=== PATIENT | male | born 1960 | race Caucasian/White ===

== ENCOUNTER 2017-05-09 12:55 | Day surgery (SDC) | payer SELFPAY ==
[~2017-05-09] VITALS: Ht 182.9 cm; Wt 98.1 kg
[~2017-05-09 12:55] MED LIST: DOCU-161 PO; HYDR1TAB PO; NAPR-243 PO; SULF1TAB38 PO; TRAM50TA2 PO
[2017-05-09] MEDS ORDERED: ASPIRIN 81 MG CHEW (CHILDREN'S ASA) PO ONE (13:15)
[2017-05-09 13:16] LABS: BASOPHILS # (AUTO) 0.1 10^3/uL (0.0-0.1); BASOPHILS % (AUTO) 1 % (0-10); EOSINOPHILS # (AUTO) 0.2 10^3/uL (0.0-0.3); EOSINOPHILS % (AUTO) 3 % (0-10); LYMPHOCYTES # (AUTO) 2.1 X 10^3 (1.0-4.0); LYMPHOCYTES % (AUTO) 29 % (12-44); MEAN CORPUSCULAR HEMOGLOBIN 30 PG (25-34); MEAN CORPUSCULAR HGB CONC 35 G/DL (32-36); MEAN CORPUSCULAR VOLUME 88 FL (80-99); MEAN PLATELET VOLUME 9.9 FL (7.4-10.4); MONOCYTES # (AUTO) 0.4 X 10^3 (0.0-1.0); MONOCYTES % (AUTO) 5 % (0-12); NEUTROPHILS # (AUTO) 4.6 X 10^3 (1.8-7.8); NEUTROPHILS % (AUTO) 63 % (42-75); PLATELET COUNT 229 10^3/uL (130-400); RED BLOOD COUNT 5.07 10^6/uL (4.35-5.85); RED CELL DISTRIBUTION WIDTH 12.9 % (10.0-14.5); WHITE BLOOD COUNT 7.4 10^3/uL (4.3-11.0)
--- NOTE | 2017-05-09 13:33 | ED Chest Pain ---
General Chief Complaint: Chest Pain Stated Complaint: CHEST FEELS TIGHT,SOA Nursing Triage Note: AMB TO ROOM C/O CHEST PAIN WITH SOA WHEN WALKING. REPORTS STARTED ON TUESDAY WENT TO [facility] ER WAS TOLD EVERYTHING WAS OK. WAS WALKING TODAY AND SAME THING HAPPENED. PAIN FREE ON ADMIT TO ROOM. Nursing Sepsis Screen: No Definite Risk Source: patient Exam Limitations: no limitations History of Present Illness Time seen by provider: 12:58 Initial Comments This 57-year-old gentleman presents to the emergency room with complaints of intermittent chest pain and shortness of breath with exertion since May 06. He presented to the emergency room in [place] where he was advised to be evaluated for cardiac disease by stress test. He elected to follow-up as an outpatient. Since then he has had a persistent problems with chest tightness and shortness of air with exertion. 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 The dyspnea with exertion is even more distressing to him down the discomfort. He has no personal history of cardiopulmonary problems but does have a family history of heart disease in both parents. He is also a smoker. He took aspirin 162 mg earlier today. He denies any chest pain at present. Allergies and Home Medications Allergies Coded Allergies: No Known Drug Allergies (Unverified , 04/30/11) Home Medications No Active Prescriptions or Reported Meds Review of Systems Constitutional: no symptoms reported EENTM: No Symptoms Reported Respiratory: See HPI Cardiovascular: See HPI Gastrointestinal: No Symptoms Reported Genitourinary: No Symptoms Reported Musculoskeletal: no symptoms reported Skin: no symptoms reported Psychiatric/Neurological: No Symptoms Reported Endocrine: No Symptoms Reported Hematologic/Lymphatic: No Symptoms Reported Past Rkpkdrm-Bjtppy-Ymxrby Hx Patient Social History Alcohol Use: Denies Use Recreational Drug Use: No Smoking Status: Current Everyday Smoker Recent Foreign Travel: No Contact w/Someone Who Travel: No Recent Infectious Disease Expo: No Surgeries History of Surgeries: No Respiratory History of Respiratory Disorde: No Cardiovascular History of Cardiac Disorders: No Neurological History of Neurological Disord: No Reproductive System Hx Reproductive Disorders: No Sexually Transmitted Disease: No HIV/AIDS: No Gastrointestinal History of Gastrointestinal Di: No Musculoskeletal History of Musculoskeletal Dis: Yes Endocrine History of Endocrine Disorders: No HEENT History of HEENT Disorders: No Cancer History of Cancer: No Psychosocial History of Psychiatric Problem: No Integumentary History of Skin or Integumenta: No Blood Transfusions History of Blood Disorders: No Adverse Reaction to a Blood Tr: No Family Medical History Significant Family History: Heart Disease (mother and father) Physical Exam Vital Signs Vital Sign - Last 12Hours 05/09/17 13:05 Temp 97.3 Pulse 50 Resp 18 B/P (MAP) 154/93 (113) Pulse Ox 98 O2 Delivery Room Air Capillary Refill : Less Than 3 Seconds General Appearance: No Apparent Distress, WD/WN HEENT: PERRL/EOMI, Normal ENT Inspection Neck: Normal Inspection Respiratory: Lungs Clear, Normal Breath Sounds, No Accessory Muscle Use, No Respiratory Distress Cardiovascular: Regular Rate, Rhythm, No Edema, No Murmur Gastrointestinal: Normal Bowel Sounds, Non Tender, Soft Extremity: Normal Inspection, Non Tender, No Calf Tenderness, No Pedal Edema, Other Neurologic/Psychiatric: Alert, Oriented x3, No Motor/Sensory Deficits, Normal Mood/Affect, sanding machine tender II-XII Norm as Tested Skin: Normal Color, Warm/Dry Progress/Results/Core Measures Results/Orders Lab Results Laboratory Tests Test 05/09/17 13:05 Range/Units White Blood Count 7.4 4.3-11.0 10^3/uL Red Blood Count 5.07 4.35-5.85 10^6/uL Hemoglobin 15.4 13.3-17.7 G/DL Hematocrit 45 40-54 % Mean Corpuscular Volume 88 80-99 FL Mean Corpuscular Hemoglobin 30 25-34 PG Mean Corpuscular Hemoglobin Concent 35 32-36 G/DL Red Cell Distribution Width 12.9 10.0-14.5 % Platelet Count 229 130-400 10^3/uL Mean Platelet Volume 9.9 7.4-10.4 FL Neutrophils (%) (Auto) 63 42-75 % Lymphocytes (%) (Auto) 29 12-44 % Monocytes (%) (Auto) 5 0-12 % Eosinophils (%) (Auto) 3 0-10 % Basophils (%) (Auto) 1 0-10 % Neutrophils # (Auto) 4.6 1.8-7.8 X 10^3 Lymphocytes # (Auto) 2.1 1.0-4.0 X 10^3 Monocytes # (Auto) 0.4 0.0-1.0 X 10^3 Eosinophils # (Auto) 0.2 0.0-0.3 10^3/uL Basophils # (Auto) 0.1 0.0-0.1 10^3/uL Prothrombin Time 12.8 12.2-14.7 SEC INR Comment 1.0 0.8-1.4 Activated Partial Thromboplast Time 30 24-35 SEC Sodium Level 139 135-145 MMOL/L Potassium Level 4.1 3.6-5.0 MMOL/L Chloride Level 106 98-107 MMOL/L Carbon Dioxide Level 27 21-32 MMOL/L Anion Gap 6 5-14 MMOL/L Blood Urea Nitrogen 12 7-18 MG/DL Creatinine 0.93 0.60-1.30 MG/DL Estimat Glomerular Filtration Rate > 60 BUN/Creatinine Ratio 13 Glucose Level 104 70-105 MG/DL Calcium Level 9.0 8.5-10.1 MG/DL Magnesium Level 2.1 1.8-2.4 MG/DL Total Bilirubin 0.5 0.1-1.0 MG/DL Aspartate Amino Transf (AST/SGOT) 17 5-34 U/L Alanine Aminotransferase (ALT/SGPT) 22 0-55 U/L Alkaline Phosphatase 73 40-136 U/L Myoglobin 57.1 10.0-92.0 NG/ML Troponin I < 0.30 <0.30 NG/ML Total Protein 6.6 6.4-8.2 GM/DL Albumin 3.8 3.2-4.5 GM/DL My Orders Orders - NEREYDA TENA MD Cbc With Automated Diff (05/09/17 13:08) Magnesium (05/09/17 13:08) Chest 1 View, Ap/Pa Only (05/09/17 13:08) Ekg Tracing (05/09/17 13:08) Cardiac Profile 1 (05/09/17 13:08) Comprehensive Metabolic Panel (05/09/17 13:08) Myoglobin Serum (05/09/17 13:08) Protime With Inr (05/09/17 13:08) Partial Thromboplastin Time (05/09/17 13:08) O2 (05/09/17 13:08) Monitor-Rhythm Ecg Trace Only (05/09/17 13:08) Lipid Panel (05/10/17 06:00) Aspirin Chewable Tablet (Baby Aspirin Ch (05/09/17 13:15) Saline Lock/Iv-Start (05/09/17 13:08) Medications Given in ED Current Medications Medications Dose Ordered Sig/Anil Route Start Time Stop Time Status Last Admin Dose Admin Aspirin 162 mg ONCE ONCE PO 05/09/17 13:15 05/09/17 13:16 DC 05/09/17 13:13 162 MG Vital Signs/I&O Vital Sign - Last 12Hours 05/09/17 13:05 Temp 97.3 Pulse 50 Resp 18 B/P (MAP) 154/93 (113) Pulse Ox 98 O2 Delivery Room Air Blood Pressure Mean: 113 Progress Note #1: Time: 12:30 Progress Note EKG showed no evidence of ischemia. The patient has no pain at present. The balance of his aspirin dose was ordered. Progress Note #2: Time: 14:11 Progress Note Patient's workup was unremarkable. He had no further pain or dyspnea in the emergency room. Based on patient's risk factors and classic presentation for angina, I have recommended further evaluation in the hospital. Patient is agreeable. Dr. Chavez excepts admission. [facility] staff was notified and will notify Dr. Avalos of the consult. Progress Note #3: Time: 14:[address] Chavez is in the emergency room now to assess patient. ECG Initial ECG Impression Date: May 09, 2017 Initial ECG Impression Time: 13:05 Initial ECG Rate: 49 Initial ECG Rhythm: S.Jose Comment Slight sinus bradycardia with no ST elevation or depression to suggest ischemia. No abnormal intervals or axis deviation. Diagnostic Imaging Diagonstic Imaging: Xray Plain Films/CT/US/NM/MRI: chest Comments Chest x-ray viewed by me and report reviewed. See report below: NAME: [facility] REC#: [id number] PT STATUS: REG ER : 1960 PHYSICIAN: NEREYDA TENA MD ADMIT DATE: 05/09/17/ER Draft Date of Exam:05/09/17 CHEST 1 VIEW, AP/PA ONLY INDICATION: Chest tightness and dyspnea. Portable upright view of the chest is obtained. COMPARISON: No previous study is available for comparison at this time. FINDINGS: Heart size and pulmonary vasculature are within normal limits, and the lungs are clear, bilaterally. IMPRESSION: Unremarkable chest. Dictated on workstation # [id number] Dict: 05/09/17 1348 Trans: 05/09/17 1349 [id number] Interpreted by: LORI PECK MD Departure Communication (Admissions) Time/Spoke to Admitting Phy: 14:[address] Chavez Impression Impression: Primary Impression: Chest pain on exertion Additional Impression: Dyspnea on exertion Disposition: ADMITTED INPATIENT Condition: Stable Admissions Decision to Admit Reason: Admit from ER (General) Decision to Admit/Date: May 09, 2017 Time/Decision to Admit Time: 13:10 Departure-Patient Inst. Referrals: NO,LOCAL PHYSICIAN (PCP/Family) Primary Care Physician Scripts No Active Prescriptions or Reported Meds NEREYDA TENA MD May 09, 2017 13:33
[2017-05-09 13:36] LABS: PROTHROMBIN TIME PATIENT 12.8 SEC (12.2-14.7)
[2017-05-09 13:42] LABS: ALANINE AMINOTRANSFERASE 22 U/L (0-55); ALBUMIN 3.8 GM/DL (3.2-4.5); ANION GAP 6 MMOL/L (5-14); ASPARTATE AMINO TRANSFERASE 17 U/L (5-34); BILIRUBIN,TOTAL 0.5 MG/DL (0.1-1.0); BLOOD UREA NITROGEN 12 MG/DL (7-18); BUN/CREATININE RATIO 13; CARBON DIOXIDE 27 MMOL/L (21-32); CHLORIDE 106 MMOL/L (98-107); CREATININE SERUM 0.93 MG/DL (0.60-1.30); GFR ESTIMATED > 60; GLUCOSE 104 MG/DL (70-105); MAGNESIUM 2.1 MG/DL (1.8-2.4); POTASSIUM 4.1 MMOL/L (3.6-5.0); SODIUM 139 MMOL/L (135-145); TOTAL PROTEIN 6.6 GM/DL (6.4-8.2)
--- NOTE | 2017-05-09 13:49 | Diagnostic Imaging Report ---
INDICATION: Chest tightness and dyspnea. Portable upright view of the chest is obtained. COMPARISON: No previous study is available for comparison at this time. FINDINGS: Heart size and pulmonary vasculature are within normal limits, and the lungs are clear, bilaterally. IMPRESSION: Unremarkable chest. Dictated by: Dictated on workstation # [id number]
[2017-05-09 13:51] LABS: MYOGLOBIN SERUM 57.1 NG/ML (10.0-92.0)
--- NOTE | 2017-05-09 14:41 | History & Physical-Hospitalist ---
HPI History of Present Illness: HPI/Chief Complaint Pt is a 57yoCM with a history of tobaccoism who presents to the ER for chest pain and dyspnea on exertion. He reports his symptoms started when he was clipping a horse's hoof. He felt that he squeezed very hard and developed chest tightness and SOB. He thought that he may have pulled a muscle but the symptoms continued to occur. He was seen in [place] and they recommended further cardiac evaluation at that time but he has not had that done yet. His symptoms returned today while he was out haying. He states prior to last week he had no dyspnea with his activity and he has not drastically changed his activity level. He now states his symptoms are mostly dyspnea on exertion (walking around 100ft) and he even has had one episode while at rest. Source: patient Exam Limitations: no limitations Date Seen 05/09/17 Time Seen by Provider: 14:15 Attending Physician PCP No,Local Physician Referring Physician Date of Admission Home Medications & Allergies Home Medications Reviewed patient Home Medication Reconciliation Form Allergies Allergies Coded Allergies No Known Drug Allergies (Nnnwquwvel00/9/11) Past Oarwwkb-Tsfrtb-Pnfclo Hx Patient Social History Employed/Student: employed Alcohol Use: Denies Use Recreational Drug Use: No Smoking Status: Current Everyday Smoker Cigaretts per day: 10 Recent Foreign Travel: No Contact w/other who traveled: No Recent Infectious Disease Expo: No Surgeries No Respiratory No Cardiovascular No Neurological No Reproductive System Hx Reproductive Disorders: No Sexually Transmitted Disease: No HIV/AIDS: No Gastrointestinal No Musculoskeletal Yes Endocrine History of Endocrine Disorders: No HEENT History of HEENT Disorders: No Cancer No Psychosocial History of Psychiatric Problem: No Integumentary History of Skin or Integumenta: No Blood Transfusions History of Blood Disorders: No Adverse Reaction to a Blood Tr: No Family Medical History Significant Family History: Heart Disease (mother and father) Review of Systems Constitutional: No chills, No fever EENTM: No blurred vision, No double vision, No nose congestion, No throat pain Respiratory: No cough, dyspnea on exertion, No orthopnea, short of breath, No wheezing Cardiovascular: chest pain, No edema, No Hx of Intervention, No palpitations, No syncope Gastrointestinal: No abdominal pain, No constipation, No diarrhea, No nausea, No vomiting Genitourinary: No dysuria, No frequency Musculoskeletal: No joint pain, No muscle pain Skin: dryness, other (psoriasis) Psychiatric/Neurological: Denies Headache, Denies Numbness, Denies Tingling Physical Exam Physical Exam Vital Signs Vital Sign - Last 12Hours 05/09/17 13:05 Temp 97.3 Pulse 50 Resp 18 B/P (MAP) 154/93 (113) Pulse Ox 98 O2 Delivery Room Air Capillary Refill : Less Than 3 Seconds General Appearance: No Apparent Distress, WD/WN HEENT: PERRL/EOMI, Moist Mucous Membranes Neck: Non Tender, Supple Respiratory: Lungs Clear, No Respiratory Distress Cardiovascular: Regular Rate, Rhythm, No Edema, No JVD, No Murmur, Normal Peripheral Pulses Gastrointestinal: Normal Bowel Sounds, Non Tender, Soft Extremity: Normal Capillary Refill, No Calf Tenderness Neurologic/Psychiatric: Alert, Oriented x3, Normal Mood/Affect Skin: Normal Color, Warm/Dry Results Results/Procedures Lab Laboratory Tests 05/09/17 13:05 Radiology CHEST 1 VIEW, AP/PA ONLY INDICATION: Chest tightness and dyspnea. Portable upright view of the chest is obtained. COMPARISON: No previous study is available for comparison at this time. FINDINGS: Heart size and pulmonary vasculature are within normal limits, and the lungs are clear, bilaterally. IMPRESSION: Unremarkable chest. Assessment/Plan Admission Diagnosis Typical Chest Pain Diagnosis/Problems Diagnosis/Problems (1) Chest pain on exertion Status: Acute Assessment & Plan: Very concerning for cardiac origin Cardiology consulted, appreciate recs Received ASA 162mg at home, additional 162mg given here Will monitor on tele trend troponins NPO after midnight (2) Dyspnea on exertion Status: Acute Assessment & Plan: Again concerning for cardiac etiology As above (3) Elevated blood pressure reading Status: Acute Assessment & Plan: No history of HTN Will trend, if remains elevated will need initiation of antihypertensives (4) Tobacco dependence Assessment & Plan: Recommended cessation Clinical Quality Measures AMI/AHF: ASA po Prior to arrival: Yes (2 81MG) LUCY NASCIMENTO MD May 09, 2017 14:41
[2017-05-09 15:00] VITALS: BP 150/89
[2017-05-09] MEDS ORDERED: morphine INJ 4 MG/ML 1 ML (VIAL/SYRINGE) IV PRN (15:15)
[2017-05-09] MEDS ORDERED: PATIENT MAY USE OWN MEDS, ALL PO SCH (15:15)
[2017-05-09] MEDS ORDERED: morphine INJ 10 MG/ML 1ML (SYR OR VIAL) IVP PRN (15:15)
[2017-05-09] MEDS ORDERED: ONDANSETRON 4 MG/2 ML (SDV) Z0FRAN IVP PRN (15:15)
[2017-05-09] MEDS ORDERED: NITROGLYCERIN 0.4 MG SL TABS BTL 25'S SL PRN (15:15)
[2017-05-09] MEDS ORDERED: INFLUENZA TRIvalent 2017-2018 0.5 ML/45 MCG SYR IM ONE (15:30)
--- NOTE | 2017-05-09 15:31 | Consultation-Cardiology ---
HPI-Cardiology Cardiology Consultation: Date of Consultation 05/09/17 Date of Admission Attending Physician Karime Chavez MD Admitting Physician No,Local Physician Consulting Physician Madie AVALOS MD HPI: Time Seen by Provider: 16:01 Chief Complaint: shortness of breath and chest pain this is a 57-year-old gentleman with history of active smoking and premature family history of CAD. His blood pressure is also elevated and is untreated. The patient denies hyperlipidemia and diabetes. He has been having worsening shortness of breath with mild exertion. He denies PND orthopnea. He denies syncope or near-syncope. He complains of chest pain for the last couple of days. Quality is tightness. Intensity 4/10. No radiation. No exacerbating or relieving factors. No other associated cardiac symptoms. Review of Systems-Cardiology Review of Systems Constitutional: No As described under HPI, No no symptoms reported, No chills, No fever, No lightheadedness, No malaise, No tiredness, No weight loss, No weight gain, No other Eyes: No As described under HPI, No no symptoms reported, No blindness, No blurred vision, No contact lenses, No drainage, No decreased acuity, No foreign body sensation, No glasses, No inflammation, No pain, No photophobia, No previous injury, No shadows, No tunnel vision, No other, No vision change Ears/Nose/Throat: No As described under HPI, No no symptoms reported, No chronic hearing loss, No epistaxis, No ear discharge, No ear pain, No loose teeth, No mouth pain, No mouth swelling, No nasal drainage, No nose pain, No recent hearing loss, No throat pain, No throat swelling, No ulcerations, No other Respiratory: shortness of breath Cardiovascular: chest pain Gastrointestinal: No no symptoms reported, No As described under HPI, No abdomen distended, No abdominal pain, No blood streaked bowels, No constipation , No diarrhea, No difficulty swallowing, No nausea, No poor appetite, No poor fluid intake, No rectal bleeding, No vomiting, No other, No nausea/vomiting/ diarrhea, No stool coloration changes Genitourinary: No no symptoms reported, No As described under HPI, No burning, No dysuria, No discharge, No frequency, No flank pain, No hematuria, No incontinence, No pain, No urgency, No other, No urine frequency changes, No urine coloration changes Musculoskeletal: No no symptoms reported, No As describe under HPI, No back pain, No gout, No joint pain, No joint swelling, No muscle pain, No muscle stiffness, No neck pain, No other Skin: No no symptoms reported, No As described under HPI, No change in color, No change in hair/nails, No dryness, No lesions, No lumps, No rash, No other, No skin related problems, No ulcerations, No rash on exposed areas, No ulcerations on exposed areas Psychiatric/Neurological: No no symptoms reported, No As described under HPI, No anxiety, No depression, No emotional problems, No headache, No numbness, No pre-existing deficit, No seizure, No tingling, No tremors, No weakness, No other , No focal weakness, No syncope Hematologic: No no symptoms reported, No As described under HPI, No anemia, No blood clots, No easy bleeding, No easy bruising, No swollen glands, No other, No bleeding abnormalities TZL-Ecjfvg-Zujcgf Hx Patient Social History Employed/Student: employed Alcohol Use: Denies Use Recreational Drug Use: No Smoking Status: Former Smoker Cigaretts per day: 10 Type Used: Cigarettes Recent Foreign Travel: No Recent Infectious Disease Expo: No Hospitalization with Isolation: Denies Physical Abuse Screen: No Sexual Abuse: No Past Medical History PMH As described under Assessment. Family Medical History Family History: Diabetes mellitus 19 MOTHER FH: breast cancer G8 SISTER FH: coronary artery bypass surgery 19 MOTHER Allergies and Home Medications Allergies Coded Allergies: No Known Drug Allergies (Unverified , 04/30/11) Home Medications No Active Prescriptions or Reported Meds Physical Exam-Cardiology Physical Exam Vital Signs/I&O Vital Sign - Last 12Hours 05/09/17 05/09/17 13:05 14:45 Temp 97.3 Pulse 50 50 Resp 18 18 B/P (MAP) 154/93 (113) Pulse Ox 98 98 O2 Delivery Room Air Room Air Capillary Refill : Less Than 3 Seconds Constitutional: No appears stated age, No AAO x 3, No apparent distress, No PERRL, No well-developed, No well-nourished, No other HEENT: No PERRL, No normal ENT inspection, No TMs normal, No pharynx normal, No scleral icterus (R), No scleral icterus (L), No pale conjunctivae (R), No pale conjunctivae (L), No photophobia, No TM abnormal (R), No TM abnormal (L), No pharyngeal erythema, No tonsillar exudate, No other, No discharge, No EOMI, No hearing is well preserved, No hard of hearing, No oral hygience is good, No ulceration, No xanthelasmas are seen Neck: No non-tender, No full range of motion, No supple, No normal inspection, No carotid bruit, No limited range of motion, No lymphadenopathy (R), No lymphadenopathy (L), No tender lateral, No tender midline, No thyromegaly, No other, No carotid pulses are 2 + bilaterally, No with good upstrokes Respiratory: No accessory muscle use, No respiratory distress, No chest tender , No chest expansion is symmetric, No chest is bilaterally symmetric, No lungs clear to percussion, No lungs clear to auscultation, No crackles, No rhonchi, No rales, No stridor, No wheezing, No pleural rub, No other Cardiovascular: No regular rate-rhythm, No irregularly irregular, No extra beats, No parasternal heave is noted, No JVD, No edema, No bradycardia, No tachycardia, No point of maximal impulse, No cardiac thrills are palpable, No S1 and S2, No gallop/S3, No gallop/S4, No diastolic murmur, No systolic murmur, No friction rub, No click, No other Gastrointestinal: No tender, No soft, No round, No distended, No pulsatile mass , No organomegaly, No guarding, No rebound, No tenderness, No hernia, No mass, No audible bowel sounds, No abnormal bowel sounds, No abdominal bruits, No spleenomegaly, No other Rectal: deferred Extremities: No normal range of motion, No non-tender, No normal inspection, No pedal edema, No calf tenderness, No normal capillary refill, No pelvis stable , No calf tenderness, No inflammation, No pedal edema, No slow capillary refill , No swelling, No other, No abrasion, No clubbing, No cyanosis, No ecchymosis, No laceration, No no lower extremity edema bilateral, No significant edema, No tenderness, No wound Neurologic/Psychiatric: No supervisor assembly and packing II-XII nml as tested, No no motor/sensory deficits, No alert, No normal mood/affect, No oriented x 3, No abnormal cerebellar tests, No abnormal supervisor assembly and packing II-XII, No abnormal gait, No aphasia, No EOM palsy, No facial droop, No motor weakness, No sensory deficit, No depressed affect, No disoriented x 3, No other, No grossly intact, No power is 5/5 both on sides Skin: No normal color, No warm/dry, No cyanosis, No cool, No diaphoresis, No damp, No ecchymosis, No jaundice, No mottled, No pallor, No rash, No tattoos/ piercings, No ulcerations, No rash on exposed areas, No ulcerations on exposed areas, No other Lymphatic: No no adenopathy, No axilla node tender (R), No axilla node tender ( L), No inguinal node tender (R), No inguinal node tender (L), No other Data Review Labs Laboratory Tests 05/09/17 13:05: White Blood Count 7.4, Red Blood Count 5.07, Hemoglobin 15.4, Hematocrit 45, Mean Corpuscular Volume 88, Mean Corpuscular Hemoglobin 30, Mean Corpuscular Hemoglobin Concent 35, Red Cell Distribution Width 12.9, Platelet Count 229, Mean Platelet Volume 9.9, Neutrophils (%) (Auto) 63, Lymphocytes (%) (Auto) 29, Monocytes (%) (Auto) 5, Eosinophils (%) (Auto) 3, Basophils (%) (Auto) 1, Neutrophils # (Auto) 4.6, Lymphocytes # (Auto) 2.1, Monocytes # (Auto) 0.4, Eosinophils # (Auto) 0.2, Basophils # (Auto) 0.1, Prothrombin Time 12.8, INR Comment 1.0, Activated Partial Thromboplast Time 30, Sodium Level 139, Potassium Level 4.1, Chloride Level 106, Carbon Dioxide Level 27, Anion Gap 6, Blood Urea Nitrogen 12, Creatinine 0.93, Estimat Glomerular Filtration Rate > 60 , BUN/Creatinine Ratio 13, Glucose Level 104, Calcium Level 9.0, Magnesium Level 2.1, Total Bilirubin 0.5, Aspartate Amino Transf (AST/SGOT) 17, Alanine Aminotransferase (ALT/SGPT) 22, Alkaline Phosphatase 73, Myoglobin 57.1, Troponin I < 0.30, Total Protein 6.6, Albumin 3.8 ECG Impression ECG Initial ECG Rhythm: Normal Sinus Comment posterior Q-wave noted. A/P-Cardiology Assessment/Admission Diagnosis shortness of breath, chest pain, hypertension Plan shortness of breath: Euvolemic on examination. No congestive heart failure. Check BNP. Echocardiogram. Chest pain: First set of troponin is negative. Serial troponin is recommended. EKG shows no acute ST-T wave abnormalities however posterior Q-wave is noted. pharmacological nuclear stress test tomorrow. Hypertension: We'll start lisinopril. Thank you for your consultation. Please call me if you have any questions. Gabriela Avalos MD, FACP, FACC, FSCAI, FHRS, CCDS Interventional Cardiology Cardiac Electrophysiology Vascular Medicine and Endovascular Interventions Clinical Quality Measures AMI/AHF: ASA po Prior to arrival: Yes (2 81MG) DVT/VTE Risk/Contraindication: Risk Factor Score Per Nursin RFS Level Per Nursing on Admit: 2=Moderate Madie AVALOS MD May 09, 2017 3:31 pm
[2017-05-09 18:20] VITALS: BP 150/86
[2017-05-09 20:00] VITALS: BP 142/88
[2017-05-10] VITALS (20 sets, daily range): BP systolic 119–158; BP diastolic 60–85
[2017-05-10 06:00] LABS: BASOPHILS % (AUTO) 1 % (0-10); EOSINOPHILS # (AUTO) 0.2 10^3/uL (0.0-0.3); EOSINOPHILS % (AUTO) 3 % (0-10); LYMPHOCYTES # (AUTO) 2.3 X 10^3 (1.0-4.0); LYMPHOCYTES % (AUTO) 34 % (12-44); MEAN CORPUSCULAR HEMOGLOBIN 30 PG (25-34); MEAN CORPUSCULAR HGB CONC 35 G/DL (32-36); MEAN CORPUSCULAR VOLUME 87 FL (80-99); MEAN PLATELET VOLUME 9.9 FL (7.4-10.4); MONOCYTES # (AUTO) 0.5 X 10^3 (0.0-1.0); MONOCYTES % (AUTO) 7 % (0-12); NEUTROPHILS # (AUTO) 3.8 X 10^3 (1.8-7.8); NEUTROPHILS % (AUTO) 56 % (42-75); PLATELET COUNT 216 10^3/uL (130-400); RED CELL DISTRIBUTION WIDTH 12.7 % (10.0-14.5); WHITE BLOOD COUNT 6.8 10^3/uL (4.3-11.0)
[2017-05-10 06:19] LABS: ANION GAP 10 MMOL/L (5-14); BLOOD UREA NITROGEN 14 MG/DL (7-18); BUN/CREATININE RATIO 17; CALCIUM 9.3 MG/DL (8.5-10.1); CARBON DIOXIDE 24 MMOL/L (21-32); CHLORIDE 105 MMOL/L (98-107); CHOLESTEROL 193 MG/DL (< 200); CREATININE SERUM 0.81 MG/DL (0.60-1.30); DIRECT LDL 142 MG/DL (1-129); GFR ESTIMATED > 60; GLUCOSE 89 MG/DL (70-105); POTASSIUM 4.1 MMOL/L (3.6-5.0); SODIUM 139 MMOL/L (135-145); TRIGLYCERIDES 130 MG/DL (<150); VLDL CHOLESTEROL 26 MG/DL (5-40)
[2017-05-10] MEDS: CATHETER FLUSH 10 ML SYR IV PRN ×2 (08:20→10:28)
[2017-05-10] MEDS ORDERED: REGADENOSON 0.4 MG/5 ML SYR (LEXISCAN) IV ONE ×2 (08:57→09:30)
[2017-05-10] MEDS ORDERED: ASPIRIN E.C. 325 MG (ECOTRIN) TABLET PO SCH (09:00)
[2017-05-10] MEDS: lisINopril 10 MG (PRINIVIL) TAB PO SCH (12:15)
--- NOTE | 2017-05-10 12:30 | Progress Note-Hospitalist ---
Subjective HPI/CC On Admission Date Seen by Provider: May 10, 2017 Time Seen by Provider: 07:20 Pt is a 57yoCM with a history of tobaccoism who presents to the ER for chest pain and dyspnea on exertion. He reports his symptoms started when he was clipping a horse's hoof. He felt that he squeezed very hard and developed chest tightness and SOB. He thought that he may have pulled a muscle but the symptoms continued to occur. He was seen in [place] and they recommended further cardiac evaluation at that time but he has not had that done yet. His symptoms returned today while he was out haying. He states prior to last week he had no dyspnea with his activity and he has not drastically changed his activity level. He now states his symptoms are mostly dyspnea on exertion (walking around 100ft) and he even has had one episode while at rest. Subjective/Events-last exam Pt reports feeling well. No further CP or SOB. Ready for stress test. Objective Exam Vital Signs Vital Sign - Last 12Hours 05/09/17 13:05 Temp 97.3 Pulse 50 Resp 18 B/P (MAP) 154/93 (113) Pulse Ox 98 O2 Delivery Room Air Capillary Refill : Less Than 3 Seconds General Appearance: No Apparent Distress, WD/WN Respiratory: Lungs Clear, No Respiratory Distress Cardiovascular: Regular Rate, Rhythm, No Murmur Gastrointestinal: Normal Bowel Sounds, Non Tender, Soft Extremity: Non Tender, No Calf Tenderness Neurologic/Psychiatric: Alert, Oriented x3 Results/Procedures Lab Laboratory Tests 05/09/17 13:05 05/10/17 05:47 Assessment/Plan Assessment and Plan Assess & Plan/Chief Complaint Typical Chest Pain Diagnosis/Problems Diagnosis/Problems (1) Chest pain on exertion Status: Acute Assessment & Plan: Very concerning for cardiac origin Cardiology consulted, appreciate recs Stress done today and markedly abnormal Will attempt to cath today if able, if not tomorrow Will monitor on tele troponins negative x3 (2) Dyspnea on exertion Status: Acute Assessment & Plan: Again concerning for cardiac etiology As above (3) Elevated blood pressure reading Status: Acute Assessment & Plan: Improved with Lisinopril (4) Tobacco dependence Assessment & Plan: Recommended cessation LUCY NASCIMENTO MD May 10, 2017 12:30
[2017-05-10] MEDS ORDERED: ATORVASTATIN 20 MG (LIPITOR) TABLET PO NR (12:36)
[2017-05-10] MEDS ORDERED: HEParin (CATH LAB) 2,000 ML IV ONE (12:37)
[2017-05-10] MEDS ORDERED: CLOPIDOGREL 300 MG (PLAVIX) TABLET PO NR (12:37)
[2017-05-10] MEDS ORDERED: NS IV 1000 ML 1,000 ML ONE (12:37)
[2017-05-10] MEDS ORDERED: LIDOCAINE 1% INJ 50 ML (XYLOCAINE) VIAL ONE (12:37)
--- NOTE | 2017-05-10 13:01 | Cardiology Progress Note ---
Cardiology SOAP Progress Note Subjective: no further chest discomfort Objective: I&O/Vital Signs Vital Sign - Last 12Hours 05/10/17 05/10/17 05/10/17 05/10/17 04:00 04:00 07:00 07:36 Temp 97.1 Pulse 45 46 B/P (MAP) 119/77 (91) Pulse Ox 99 99 O2 Delivery Room Air Room Air Room Air 05/10/17 05/10/17 05/10/17 05/10/17 07:40 08:21 10:25 12:00 Temp 97.4 Pulse 52 47 Resp 18 16 B/P (MAP) 122/68 (86) 129/79 (96) Pulse Ox 98 99 96 99 O2 Delivery Room Air Room Air Room Air Room Air 05/10/17 05/10/17 12:00 12:00 Temp 97.8 Pulse 51 50 Resp 20 B/P (MAP) 133/80 (97) 133/80 (97) Pulse Ox 98 O2 Delivery Room Air Room Air Intake and Output 05/10/17 00:00 Intake Total 440 ml Balance 440 ml Weight (Pounds): 213 Weight (Ounces): 5.0 Weight (Calculated Kilograms): 96.628311 Constitutional: No appears stated age, No AAO x 3, No apparent distress, No PERRL, No well-developed, No well-nourished, No other Respiratory: No accessory muscle use, No respiratory distress, No chest tender , No chest expansion is symmetric, No chest is bilaterally symmetric, No lungs clear to percussion, No lungs clear to auscultation, No crackles, No rhonchi, No rales, No stridor, No wheezing, No pleural rub, No other Cardiovascular: No regular rate-rhythm, No irregularly irregular, No extra beats, No parasternal heave is noted, No JVD, No edema, No bradycardia, No tachycardia, No point of maximal impulse, No cardiac thrills are palpable, No S1 and S2, No gallop/S3, No gallop/S4, No diastolic murmur, No systolic murmur, No friction rub, No click, No other Gastrointestional: No tender, No soft, No round, No distended, No pulsatile mass, No organomegaly, No guarding, No rebound, No tenderness, No hernia, No mass, No audible bowel sounds, No abnormal bowel sounds, No abdominal bruits, No spleenomegaly, No other Extremities: No normal range of motion, No non-tender, No normal inspection, No pedal edema, No calf tenderness, No normal capillary refill, No pelvis stable , No calf tenderness, No inflammation, No pedal edema, No slow capillary refill , No swelling, No other, No abrasion, No clubbing, No cyanosis, No ecchymosis, No laceration, No no lower extremity edema bilateral, No significant edema, No tenderness, No wound Neurologic/Psychiatric: No investment fund manager II-XII nml as tested, No no motor/sensory deficits, No alert, No normal mood/affect, No oriented x 3, No abnormal cerebellar tests, No abnormal investment fund manager II-XII, No abnormal gait, No aphasia, No EOM palsy, No facial droop, No motor weakness, No sensory deficit, No depressed affect, No disoriented x 3, No other, No grossly intact, No power is 5/5 both on sides Skin: No normal color, No warm/dry, No cyanosis, No cool, No diaphoresis, No damp, No ecchymosis, No jaundice, No mottled, No pallor, No rash, No tattoos/ piercings, No ulcerations, No rash on exposed areas, No ulcerations on exposed areas, No other Results/Procedures: Labs Laboratory Tests 05/09/17 13:05: White Blood Count 7.4, Red Blood Count 5.07, Hemoglobin 15.4, Hematocrit 45, Mean Corpuscular Volume 88, Mean Corpuscular Hemoglobin 30, Mean Corpuscular Hemoglobin Concent 35, Red Cell Distribution Width 12.9, Platelet Count 229, Mean Platelet Volume 9.9, Neutrophils (%) (Auto) 63, Lymphocytes (%) (Auto) 29, Monocytes (%) (Auto) 5, Eosinophils (%) (Auto) 3, Basophils (%) (Auto) 1, Neutrophils # (Auto) 4.6, Lymphocytes # (Auto) 2.1, Monocytes # (Auto) 0.4, Eosinophils # (Auto) 0.2, Basophils # (Auto) 0.1, Prothrombin Time 12.8, INR Comment 1.0, Activated Partial Thromboplast Time 30, Sodium Level 139, Potassium Level 4.1, Chloride Level 106, Carbon Dioxide Level 27, Anion Gap 6, Blood Urea Nitrogen 12, Creatinine 0.93, Estimat Glomerular Filtration Rate > 60 , BUN/Creatinine Ratio 13, Glucose Level 104, Calcium Level 9.0, Magnesium Level 2.1, Total Bilirubin 0.5, Aspartate Amino Transf (AST/SGOT) 17, Alanine Aminotransferase (ALT/SGPT) 22, Alkaline Phosphatase 73, Myoglobin 57.1, Troponin I < 0.30, Total Protein 6.6, Albumin 3.8 05/09/17 19:02: Troponin I < 0.30 05/10/17 01:00: Troponin I < 0.30 05/10/17 05:47: White Blood Count 6.8, Red Blood Count 5.20, Hemoglobin 15.6, Hematocrit 45, Mean Corpuscular Volume 87, Mean Corpuscular Hemoglobin 30, Mean Corpuscular Hemoglobin Concent 35, Red Cell Distribution Width 12.7, Platelet Count 216, Mean Platelet Volume 9.9, Neutrophils (%) (Auto) 56, Lymphocytes (%) (Auto) 34, Monocytes (%) (Auto) 7, Eosinophils (%) (Auto) 3, Basophils (%) (Auto) 1, Neutrophils # (Auto) 3.8, Lymphocytes # (Auto) 2.3, Monocytes # (Auto) 0.5, Eosinophils # (Auto) 0.2, Basophils # (Auto) 0.0, Sodium Level 139, Potassium Level 4.1, Chloride Level 105, Carbon Dioxide Level 24, Anion Gap 10, Blood Urea Nitrogen 14, Creatinine 0.81, Estimat Glomerular Filtration Rate > 60, BUN/ Creatinine Ratio 17, Glucose Level 89, Calcium Level 9.3, Triglycerides Level 130, Cholesterol Level 193, LDL Cholesterol Direct 142H, VLDL Cholesterol 26, HDL Cholesterol 29L A/P: Assessment/Dx: shortness of breath, chest pain, hypertension, active smoking. Plan: shortness of breath: Euvolemic on examination. No congestive heart failure. Check BNP. Echocardiogram showed normal LV function. Chest pain: acute coronary syndrome ruled out with negative serial troponin. EKG shows no acute ST-T wave abnormalities however posterior Q-wave is noted. pharmacological nuclear stress test showed evidence of anterior ischemia. Coronary angiography is recommended.. Hypertension: We'll start lisinopril. smoking cessation strongly recommended. Thank you for your consultation. Please call me if you have any questions. Gabriela Avalos MD, FACP, FACC, FSCAI, FHRS, CCDS Interventional Cardiology Cardiac Electrophysiology Vascular Medicine and Endovascular Interventions Clinical Quality Measures AMI/AHF: ASA po Prior to arrival: Yes (2 81MG) Madie AVALOS MD May 10, 2017 1:01 pm
--- NOTE | 2017-05-10 14:05 | Cardiac Procedure Note-CS/ASA ---
Pre-Procedure Note Pre-Op Procedure Note H&P Reviewed The H&P was reviewed, patient examined and no changes noted. Date H&P Reviewed: May 10, 2017 Time H&P Reviewed: 14:05 Conscious Sedation Pre-Proced Time Reviewed: 14:05 ASA Class: 3 Airway Mallampati Classification: (osage appropriate class) I. II. III, IV Lungs Heart ASA score ASA 1: a normal healthy patient ASA 2: a patient with a mild systemic disease (mid diabetes, controlled hypertension, obesity ASA 3: a patient with a severe systemic disease that limits activity (angina , COPD, prior Myocardial infarction) ASA 4: a patient with an incapacitating disease that is a constant threat to life (CHF, renal failure) ASA 5: a moribund patient not expected to survive 24 hrs. (ruptured aneurysm) ASA 6: a declared brain patient whose organs are being harvested. For emergent operations, add the letter E after the classification Grade 1 Sedation Plan: Analgesia, Amnesia, Plan communicated to team members, Discussed options with patient/fam, Discussed risks with patient/fam Note The patient is an appropriate candidate to undergo the planned procedure, sedation, and anesthesia. The patient immediately re-assessed prior to indication. Madie WADE MD May 10, 2017 2:05 pm
[2017-05-10] MEDS ORDERED: VERAPAMIL 5 MG/2 ML (CALAN) VIAL IV ONE (14:19)
[2017-05-10] MEDS ORDERED: fentaNYL INJECTION 100 MCG/2 ML AMP ONE (14:19)
[2017-05-10] MEDS ORDERED: HEParin 1000 UNIT/ML (10ML VIAL) FOR BOLUS ONE (14:19)
[2017-05-10] MEDS ORDERED: MIDAZOLAM 5 MG/5 ML (VERSED) VIAL ONE (14:19)
[2017-05-10] MEDS ORDERED: NITROGLYCERIN DRIP 25 MG/D5W 250 ML IV ONE (14:19)
[2017-05-10] MEDS ORDERED: NS IV 1000 ML 1,000 ML IV SCH (14:45)
[2017-05-10] MEDS ORDERED: ADENOSINE 3 MG/1 ML (ADENOSCAN) 30ML VIAL IV ONE (15:36)
[2017-05-10] MEDS ORDERED: EPTIFIBATIDE BOLUS 20 ML IV ONE (15:48)
[2017-05-10] MEDS ORDERED: PATIENT MAY USE OWN MEDS, ALL PO SCH (16:00)
--- NOTE | 2017-05-10 16:00 | Cardiology Post Procedure Note ---
Post-Procedure Note Physician (s)/Beveller Operator (s) Physician Madie WADE MD Pre-Procedure Diagnosis Pre-Procedure Diagnosis: Unstable angina, Abnormal nuclear stress test Post-Procedure Note Procedure Start Date: May 10, 2017 Procedure Start Time: 14:45 Name of Procedure: Coronary angiography, LHC, FFR to LAD, PCI to mid LAD with FOREST Findings/Procedure Note Severe mid LAD stenosis -> treated successfully with one FOREST Xience Alpine 3.0x18mm at 14 atmospheres. Moderate disease noted distal to the stent. FFR 0.88 therefore no further treatment. Anesthesia Type: Conscious Sedation Estimated blood loss (mL): 20 Contrast Amount: 210 Post-Procedure Diagnosis Post-operative diagnosis: Severe single vessel CAD treated with one FOREST in mid LAD Madie WADE MD May 10, 2017 3:59 pm
[2017-05-10] MEDS ORDERED: CLOPIDOGREL 300 MG (PLAVIX) TABLET PO ONE (16:02)
[2017-05-10] MEDS: NS IV 1000 ML 1,000 ML IV SCH (16:29)
[2017-05-10] MEDS ORDERED: ATROPINE INJECTION 1 MG/10 ML SYR (ABBOTT) ONE (19:58)
[2017-05-11] VITALS (10 sets, daily range): BP systolic 89–134; BP diastolic 46–81
[2017-05-11] MEDS: NS IV 1000 ML 1,000 ML IV SCH (00:45)
[2017-05-11 05:06] LABS: MEAN PLATELET VOLUME 10.1 FL (7.4-10.4); RED BLOOD COUNT 5.03 10^6/uL (4.35-5.85); RED CELL DISTRIBUTION WIDTH 12.8 % (10.0-14.5); WHITE BLOOD COUNT 9.3 10^3/uL (4.3-11.0)
[2017-05-11 05:29] LABS: ANION GAP 10 MMOL/L (5-14); BLOOD UREA NITROGEN 17 MG/DL (7-18); BUN/CREATININE RATIO 21; CALCIUM 8.8 MG/DL (8.5-10.1); CARBON DIOXIDE 23 MMOL/L (21-32); CHLORIDE 106 MMOL/L (98-107); CREATININE SERUM 0.82 MG/DL (0.60-1.30); GFR ESTIMATED > 60; GLUCOSE 107 MG/DL (70-105); SODIUM 139 MMOL/L (135-145)
[2017-05-11] MEDS: lisINopril 10 MG (PRINIVIL) TAB PO SCH (08:47)
[2017-05-11] MEDS ORDERED: ASPIRIN E.C. 81 MG (ECOTRIN) TAB PO SCH (09:00)
[2017-05-11] MEDS ORDERED: CLOPIDOGREL 75 MG (PLAVIX) TABLET PO SCH (09:00)
--- NOTE | 2017-05-11 10:24 | Cardiology Progress Note ---
Cardiology SOAP Progress Note Subjective: No chest pain. Stable cardiac-miranda. Objective: I&O/Vital Signs Vital Sign - Last 12Hours 05/11/17 05/11/17 05/11/17 05/11/17 02:00 03:00 04:00 04:00 Pulse 54 53 46 Resp 10 16 13 B/P (MAP) 89/58 (68) 90/52 (65) 92/46 (61) Pulse Ox 93 95 96 O2 Delivery Room Air Room Air Room Air Room Air 05/11/17 05/11/17 05/11/17 05/11/17 05:00 06:00 07:00 07:01 Pulse 44 51 45 64 Resp 29 29 10 B/P (MAP) 114/72 (86) 101/70 (80) 132/76 (94) Pulse Ox 96 96 95 O2 Delivery Room Air Room Air Room Air 05/11/17 05/11/17 05/11/17 05/11/17 07:25 07:25 07:25 08:00 Temp 97.9 Pulse 50 Resp 14 B/P (MAP) 134/81 (98) Pulse Ox 96 O2 Delivery Room Air Room Air Room Air Room Air 05/11/17 11:13 Pulse 50 Resp 14 B/P (MAP) 134/81 Pulse Ox 96 O2 Delivery Room Air Intake and Output 05/11/17 00:00 Intake Total 325 ml Output Total 475 ml Balance -150 ml Weight (Pounds): 216 Weight (Ounces): 6.0 Weight (Calculated Kilograms): 98.321630 Side: right Groin site without hematoma: Yes Condition: DP/PT pulses palpable Device Insertion Site: without hematoma Swelling: without swelling Constitutional: No appears stated age, No AAO x 3, No apparent distress, No PERRL, No well-developed, No well-nourished, No other Respiratory: No accessory muscle use, No respiratory distress, No chest tender , No chest expansion is symmetric, No chest is bilaterally symmetric, No lungs clear to percussion, No lungs clear to auscultation, No crackles, No rhonchi, No rales, No stridor, No wheezing, No pleural rub, No other Cardiovascular: No regular rate-rhythm, No irregularly irregular, No extra beats, No parasternal heave is noted, No JVD, No edema, No bradycardia, No tachycardia, No point of maximal impulse, No cardiac thrills are palpable, No S1 and S2, No gallop/S3, No gallop/S4, No diastolic murmur, No systolic murmur, No friction rub, No click, No other Gastrointestional: No tender, No soft, No round, No distended, No pulsatile mass, No organomegaly, No guarding, No rebound, No tenderness, No hernia, No mass, No audible bowel sounds, No abnormal bowel sounds, No abdominal bruits, No spleenomegaly, No other Extremities: No normal range of motion, No non-tender, No normal inspection, No pedal edema, No calf tenderness, No normal capillary refill, No pelvis stable , No calf tenderness, No inflammation, No pedal edema, No slow capillary refill , No swelling, No other, No abrasion, No clubbing, No cyanosis, No ecchymosis, No laceration, No no lower extremity edema bilateral, No significant edema, No tenderness, No wound Neurologic/Psychiatric: No textile colorist dyer II-XII nml as tested, No no motor/sensory deficits, No alert, No normal mood/affect, No oriented x 3, No abnormal cerebellar tests, No abnormal textile colorist dyer II-XII, No abnormal gait, No aphasia, No EOM palsy, No facial droop, No motor weakness, No sensory deficit, No depressed affect, No disoriented x 3, No other, No grossly intact, No power is 5/5 both on sides Skin: No normal color, No warm/dry, No cyanosis, No cool, No diaphoresis, No damp, No ecchymosis, No jaundice, No mottled, No pallor, No rash, No tattoos/ piercings, No ulcerations, No rash on exposed areas, No ulcerations on exposed areas, No other Results/Procedures: Labs Laboratory Tests 05/10/17 19:04: Activated Partial Thromboplast Time 34 05/11/17 04:15: White Blood Count 9.3, Red Blood Count 5.03, Hemoglobin 15.0, Hematocrit 44, Mean Corpuscular Volume 87, Mean Corpuscular Hemoglobin 30, Mean Corpuscular Hemoglobin Concent 34, Red Cell Distribution Width 12.8, Platelet Count 228, Mean Platelet Volume 10.1, Sodium Level 139, Potassium Level 4.0, Chloride Level 106, Carbon Dioxide Level 23, Anion Gap 10, Blood Urea Nitrogen 17, Creatinine 0.82, Estimat Glomerular Filtration Rate > 60, BUN/Creatinine Ratio 21, Glucose Level 107H, Calcium Level 8.8 A/P: Assessment/Dx: shortness of breath, chest pain, hypertension, active smoking, CAD with severe mid LAD stenosis treated with a drug-eluting stent. Plan: shortness of breath: Euvolemic on examination. No congestive heart failure. Echocardiogram showed normal LV function. Chest pain/CAD: acute coronary syndrome ruled out with negative serial troponin. EKG shows no acute ST-T wave abnormalities however posterior Q-wave is noted. pharmacological nuclear stress test showed evidence of anterior ischemia. Coronary angiography would severe mid LAD stenosis treated with a drug-eluting stent. Moderate disease distal to the stent evaluated with a FFR. FFR was 0.88 therefore PCI deferred. Patient will be discharged on aspirin, Plavix, statin, LORNA inhibitor. Beta july not given since the patient had sinus bradycardia 48 bpm. Beta blockers are contraindicated at this point in time. Hypertension: Continue LORNA inhibitor. smoking cessation strongly recommended. I will Follow-up the patient as an outpatient in 3-4 weeks. Thank you for your consultation. Please call me if you have any questions. Gabriela Wade MD, FACP, FACC, FSCAI, FHRS, CCDS Interventional Cardiology Cardiac Electrophysiology Vascular Medicine and Endovascular Interventions Clinical Quality Measures AMI/AHF: ASA po Prior to arrival: Yes (2 81MG) Madie WADE MD May 11, 2017 10:24
[2017-05-11] MEDS ORDERED: ATORVASTATIN 40 MG (LIPITOR) TABLET PO SCH (10:30)
[2017-05-11] MEDS ORDERED: CLOP75TA28 PO (10:48)
[2017-05-11] MEDS ORDERED: LISI10TA2 PO (10:48)
[2017-05-11] MEDS ORDERED: ASPI-983 PO (10:48)
[2017-05-11] MEDS ORDERED: ATOR40TA PO (10:48)
--- NOTE | 2017-05-11 13:16 | Discharge Summary-Hospitalist ---
Diagnosis/Chief Complaint Date of Admission May 09, 2017 at 14:18 Date of Discharge May 11, 2017 at 11:13 Discharge Date: May 11, 2017 Admission Diagnosis Typical Chest Pain Discharge Diagnosis Typical Chest Pain (1) Chest pain on exertion Status: Acute Assessment & Plan: Cardiology consulted, appreciate recs Stress done 05/10 and markedly abnormal Cath done afterwards revealed severe one vessel disease Stent placed Started on DAPT and statin (2) Dyspnea on exertion Status: Acute Assessment & Plan: Again concerning for cardiac etiology As above (3) Elevated blood pressure reading Status: Acute Assessment & Plan: Improved with Lisinopril (4) Tobacco dependence Assessment & Plan: Recommended cessation Discharge Summary Consultations Cardiology- Dr Avalos Discharge Physical Examination Allergies: Coded Allergies: No Known Drug Allergies (Unverified , 04/30/11) Vitals & I&Os Vital Signs Date Time Temp Pulse Resp B/P (MAP) Pulse Ox O2 Delivery O2 Flow Rate FiO2 05/11/17 11:13 50 14 134/81 96 Room Air 05/11/17 07:25 97.9 Hospital Course Pt is a 57yoCM with a PMH of tobaccoism who presented to the ER for exertional chest pain and dyspnea. He was admitted for chest pain rule out. Troponins were negative and he underwent stress test which was markedly abnormal. He underwent heart cath on 05/10 which showed severe 1 vessel disease and he was started on ASA, Plavix, and atorvastatin. Blood pressure were found to be elevated and he was started on Lisinopril with good control. He reports plans to quit smoking and is very motivated. He was discharged in stable condition. Labs (last 24 hrs) Laboratory Tests 05/10/17 19:04: Activated Partial Thromboplast Time 34 05/11/17 04:15: White Blood Count 9.3, Red Blood Count 5.03, Hemoglobin 15.0, Hematocrit 44, Mean Corpuscular Volume 87, Mean Corpuscular Hemoglobin 30, Mean Corpuscular Hemoglobin Concent 34, Red Cell Distribution Width 12.8, Platelet Count 228, Mean Platelet Volume 10.1, Sodium Level 139, Potassium Level 4.0, Chloride Level 106, Carbon Dioxide Level 23, Anion Gap 10, Blood Urea Nitrogen 17, Creatinine 0.82, Estimat Glomerular Filtration Rate > 60, BUN/Creatinine Ratio 21, Glucose Level 107H, Calcium Level 8.8 Discharge Home Medications: Active Scripts Active Lisinopril 10 Mg Tablet 10 Mg PO DAILY 30 Days Lipitor (Atorvastatin Calcium) 40 Mg Tablet 40 Mg PO HS 30 Days Clopidogrel (Clopidogrel Bisulfate) 75 Mg Tablet 75 Mg PO DAILY 30 Days Aspirin EC (Aspirin) 81 Mg Tablet.dr 81 Mg PO DAILY 30 Days Instructions to patient/family Please see electronic discharge instructions given to patient. Clinical Quality Measures AMI/AHF: ASA po Prior to arrival: Yes (2 81MG) DVT/VTE Risk/Contraindication: Risk Factor Score Per Nursin RFS Level Per Nursing on Admit: 2=Moderate Copy Copies To 1: Madie AVALOS MD, KATELYN M MD May 11, 2017 13:16
--- NOTE | 2017-05-11 21:28 | CARDIAC CATHETERIZATION ---
DATE OF SERVICE: 05/10/2017 CORONARY ANGIOGRAPHY AND PCI REPORT INDICATION: Prolonged chest pain, abnormal nuclear stress test. PREOPERATIVE DIAGNOSIS: Prolonged chest pain, abnormal nuclear stress test. POSTOPERATIVE DIAGNOSIS: Severe mid LAD stenosis treated successfully with drug-eluting stent. HISTORY OF PRESENT ILLNESS: The patient is a 57-year-old gentleman who presented with prolonged episode of chest pain. He has a history of active smoking. Acute coronary syndrome was ruled out with negative serial troponin. A nuclear stress test was performed, which showed evidence of anterior ischemia. Coronary angiography was recommended. PROCEDURES PERFORMED: 1. Coronary angiography. 2. Left heart catheterization. 3. FFR to the LAD. 4. PCI to mid LAD. COMPLICATIONS: None. SPECIMENS: None. ESTIMATED BLOOD LOSS: 20 mL. ANESTHESIA: Conscious sedation. ANTICOAGULATION: IV heparin and Integrilin bolus. CONTRAST DOSE: 210 mL of Omnipaque. FLUOROSCOPY DOSE: 1340 mGy. DESCRIPTION OF PROCEDURE: The patient was brought to the laborer general after informed consent was taken. All the risks and complications were explained in detail. The patient was draped and prepped in the usual sterile fashion. We first tried to gain access in the right radial artery; however, we were not able to gain access, therefore femoral access was performed in the right femoral artery with a 6-Bengali sheath. Left heart catheterization was performed with a JR4 catheter. Right coronary system was engaged with a JR4 catheter. The left coronary system was engaged with a JL4 catheter. FINDINGS: 1. RCA patent. 2. Left main patent. 3. Severe mid LAD stenosis. Stenosis severity is 99%. ELIZA 2 flow is noted. 4. Left circumflex artery. Mild proximal disease. Mild disease in the first obtuse marginal artery. No severe stenosis noted. 5. Left heart catheterization: LV pressure 127/-1 mmHg. LVDP 13 mmHg. Aortic pressure 135/66 mmHg. Normal LV function with no wall motion abnormalities. RECOMMENDATIONS: 1. PCI to the LAD is recommended. 2. FFR to mid LAD is recommended. PCI DETAILS: We used an EBU 3.5 guiding catheter, a BMW guidewire, IV heparin and Integrilin for anticoagulation. ACT was over 250 seconds. We crossed the lesion with the BMW wire. We then took a Xience Alpine 3 x 18 drug-eluting stent and deployed it at 14 atmospheres for 30 seconds. Moderate mid disease was noted. FFR was performed with an FFR wire. Adenosine 140 mcg/kg/minute was given. Lowest FFR was 0.88, which is acceptable; therefore, PCI was deferred to the moderate lesion. Mild slow flow was noted, which improved significantly with intracoronary nitroglycerin. At the end of the procedure, the wires were taken out and post-procedure results showed no significant disease and excellent flow. The patient tolerated the procedure well, did not have any complication. CONCLUSION: 1. Severe LAD stenosis treated with single drug-eluting stent. 2. Aspirin, Plavix, statin, LORNA inhibitor will be given. No beta-july due to sinus bradycardia. 3. Smoking cessation was strongly recommended. Job ID: [id number] DocumentID: [id number] Dictated Date: 05/11/2017 14:05:31 Property Field Inspector Date: 05/11/2017 18:32:50 Dictated By: TIFFANI WADE MD
== END 2017-05-11 11:13 | disposition home or self-care (01) ==
LOC: EDUNIT# 12:55 → ER 12:58 → ICU 14:18 → UNDOADMOB 14:18 → ICU 15:00 → CATH 15:00 → UNDOADMOB 15:00 → ICU 15:00 → CATH 05-11 11:13 → UNDODISOB 05-11 11:13
PROVIDERS: ATTEND Family Medicine
DX: I25.10 Atherosclerotic heart disease of native coronary artery without angina pectoris (principal); I10 Essential (primary) hypertension; F17.210 Nicotine dependence, cigarettes, uncomplicated; Z79.82 Long term (current) use of aspirin; Z79.899 Other long term (current) drug therapy
CPT/HCPCS: 36415; 71010; 78452; 80048; 80053; 80061; 83735; 83874; 84484; 85025; 85027; 85347; 85610; 85730; 92928; 93005; 93017; 93041; 93306; 93458; 93571

== ENCOUNTER → 2020-01-10 | Outpatient (CLI) | payer SELFPAY ==
[~2020-01-10] VITALS: Ht 183 cm; Wt 103.0 kg
[~2020-01-10] MED LIST changes: +ASPI-983 PO; +ATOR40TA PO; +CLOP75TA28 PO; +LISI10TA2 PO; +REGADENOSON 0.4 MG/5 ML SYR (LEXISCAN) IV ONE
[2020-01-10] MEDS: CATHETER FLUSH 10 ML SYR IV PRN (11:30)
[2020-01-10] MEDS: REGADENOSON 0.4 MG/5 ML SYR (LEXISCAN) IV ONE (12:20)
[2020-01-10 12:22] VITALS: BP 134/79
--- NOTE | 2020-01-10 18:04 | Cardiology Stress Test Report ---
Stress Test Report Type of NM Stress Test: Test Type: LEXISCAN 0.4MG/5ML Date of Procedure/Referring: Date of Procedure: Jan 10, 2020 PCP Madie Avalos MD Admitting Physician No,Local Physician Indications: Coronary artery disease Baseline Blood Pressure: Blood Pressure Systolic: 134 Blood Pressure Diastolic: 79 Summary & Conclusion: Summary: The patient was brought to the stress lab after informed consent was taken. Stress test was performed according to the Lexiscan protocol. 0.4 mg of IV Lexiscan was given. Low-grade exercise was performed. Baseline EKG showed sinus rhythm at 46 bpm and blood pressure 132/74 mmHg. Maximum heart rate of 62 bpm and blood pressure 142/79 mmHg. Patient did not have any chest pain, arrhythmias or ST segment changes during the stress test. 10.70 mCi of Myoview were given for rest imaging and 32 mCi of Myoview given for stress imaging. Transient ischemic dilatation score 1.06, EF 65 percent. Normal wall motion. Normal myocardial perfusion imaging during rest and stress. Conclusion: Pharmacological stress test was negative for ischemia. Normal LV function with no wall motion abnormalities. Normal myocardial perfusion imaging during rest and stress. Madie AVALOS MD Jan 10, 2020 18:04
== END ==
LOC: CARD 11:00
PROVIDERS: ATTEND Internal Medicine Interventional Cardiology
DX: I25.10 Atherosclerotic heart disease of native coronary artery without angina pectoris (principal); R07.2 Precordial pain; E78.5 Hyperlipidemia, unspecified; E66.3 Overweight
CPT/HCPCS: 78452; 93017; 93306; A9502